=== PATIENT | female | born 1965 | race Two or more races ===

== ENCOUNTER 2016-07-02 09:13 | Emergency (ER) | payer MEDICARE, OTHER ==
[~2016-07-02] VITALS: Ht 157.5 cm; Wt 72.6 kg
--- NOTE | 2016-07-02 09:32 | NUR ---
DR HUMPHRIES AT BEDSIDE FOR EVAL.
[2016-07-02] MEDS ORDERED: OLANZAPINE 5 MG TABLET ONE (09:53)
[2016-07-02 09:56] LABS: BASOPHILS % (AUTO) 0.4 % (0.0-2.0); EOSINOPHILS # (AUTO) 0.2 /CMM (0.0-0.7); EOSINOPHILS % (AUTO) 2.3 % (0.0-6.0); HEMATOCRIT 40 % (33-45); HEMOGLOBIN 13.4 g/dL (11.5-14.8); LYMPHOCYTES # (AUTO) 2.1 /CMM (0.8-4.8); LYMPHOCYTES % (AUTO) 27.8 % (20.0-44.0); MEAN CORPUSCULAR HEMOGLOBIN 31 PG (26.0-33.0); MEAN CORPUSCULAR HGB CONC 34 g/dl (31.0-36.0); MEAN CORPUSCULAR VOLUME 91 fL (82-100); MONOCYTES # (AUTO) 0.5 /CMM (0.1-1.30); MONOCYTES % (AUTO) 6.1 % (2.0-12.0); NEUTROPHILS # (AUTO) 4.9 /CMM (1.8-8.9); NEUTROPHILS % (AUTO) 63.4 % (43.0-81.0); PLATELET COUNT (AUTO) 269 /CMM (150-450); RDW COEFFICIENT OF VARIATION 12.9 (11.5-15.0); RED BLOOD CELL COUNT(AUTO) 4.37 MIL/uL (4.0-5.2); WHITE BLOOD COUNT (AUTO) 7.7 K/uL (4.3-11.0)
[2016-07-02] MEDS ORDERED: OLANZAPINE 10 MG VIAL IM ONE (09:57)
[2016-07-02 10:06] LABS: CREATININE 0.9 mg/dL (0.6-1.3); POTASSIUM 3.9 mmol/L (3.5-5.1)
[2016-07-02 10:53] VITALS: BP 128/92
== END 2016-07-02 10:53 | disposition home or self-care (01) ==
LOC: ER 09:15
DX: E11.9 Type 2 diabetes mellitus without complications (principal); Z79.4 Long term (current) use of insulin; Z96.41 Presence of insulin pump (external) (internal); Z88.2 Allergy status to sulfonamides; Z79.82 Long term (current) use of aspirin
CPT/HCPCS: 36415; 80048; 85025; 99284; A4606; J3490; Z7610

== ENCOUNTER 2016-08-22 21:20 | Emergency (ER) | payer MEDICARE ==
[~2016-08-22] VITALS: Ht 157.5 cm; Wt 72.6 kg
--- NOTE | 2016-08-22 21:45 | NUR ---
51 YO FEMALE BB SELF. PT IS ALERT X 3. PT STATES SHE HAS BEEN HVAING N/V WITH DIARRHEA X 2 DAYS AND STATES SHE FEELS WEAK PT DENIES ABD PAIN. PT AMBULATED TO ER BED WITH STEADY GAIT, SKIN WARM AND DRY, RR EVEN AND UNLABORED. AWAITNG ORDERS FROM PROVIDER, WILLCONTINUE TO MONITOR
[2016-08-22] MEDS ORDERED: ONDANSETRON HCL/PF 4 MG/2 ML VIAL ONE (22:41)
[2016-08-22] MEDS ORDERED: IV NS 0.9% 1,000 ML ONE (22:41)
[2016-08-22] MEDS ORDERED: IV SET PRIMARY 1 EA INFUS.SET MC ONE (22:41)
[2016-08-22] MEDS ORDERED: METOCLOPRAMIDE HCL 10 MG/2 ML VIAL ONE (22:41)
--- NOTE | 2016-08-22 22:57 | NUR ---
20G LEFT HAND IV STARTED, BLOOD SAMPLE OBTAINED AND SENT TO LAB. MEDICATED PT ORDERED
[2016-08-22] MEDS ORDERED: IV NS 0.9% 1,000 ML BAG IV ONE (23:00)
[2016-08-22] MEDS ORDERED: METOCLOPRAMIDE HCL 10 MG/2 ML VIAL IV ONE (23:00)
[2016-08-22] MEDS ORDERED: ONDANSETRON HCL/PF 4 MG/2 ML VIAL IVP ONE (23:00)
[2016-08-22 23:01] LABS: BASOPHILS % (AUTO) 0.4 % (0.0-2.0); EOSINOPHILS % (AUTO) 0.2 % (0.0-6.0); HEMATOCRIT 38 % (33-45); HEMOGLOBIN 12.9 g/dL (11.5-14.8); LYMPHOCYTES # (AUTO) 0.6 /CMM (0.8-4.8); LYMPHOCYTES % (AUTO) 7.1 % (20.0-44.0); MEAN CORPUSCULAR HEMOGLOBIN 31 PG (26.0-33.0); MEAN CORPUSCULAR HGB CONC 34 g/dl (31.0-36.0); MEAN CORPUSCULAR VOLUME 90 fL (82-100); MONOCYTES # (AUTO) 0.3 /CMM (0.1-1.30); MONOCYTES % (AUTO) 4.3 % (2.0-12.0); NEUTROPHILS # (AUTO) 7.1 /CMM (1.8-8.9); PLATELET COUNT (AUTO) 233 /CMM (150-450); RDW COEFFICIENT OF VARIATION 12.9 (11.5-15.0); WHITE BLOOD COUNT (AUTO) 8.1 K/uL (4.3-11.0)
[2016-08-22 23:33] LABS: CALCIUM, SERUM 8.4 mg/dL (8.5-10.1); CREATININE 0.8 mg/dL (0.6-1.3); POTASSIUM 3.8 mmol/L (3.5-5.1)
[2016-08-22 23:37] LABS: ALBUMIN 3.3 g/dL (3.4-5.0); BILIRUBIN,DIRECT 0.2 mg/dL (0.0-0.2); BILIRUBIN,TOTAL 1.5 mg/dL (0.2-1.0); TOTAL PROTEIN, SERUM 6.4 g/dL (6.4-8.2)
--- NOTE | 2016-08-22 23:49 | NUR ---
PT PASSED PO CHALLENGE
[2016-08-23 00:01] LABS: LYMPHOCYTES % (MANUAL) 10 % (16-48); MONOCYTES % (MANUAL) 3 % (0-11.0); NEUTROPHILS % (MANUAL) 87 (42-76)
[2016-08-23 00:02] LABS: PLATELET ESTIMATE ADEQUATE
[2016-08-23 00:03] VITALS: BP 122/80
--- NOTE | 2016-08-23 00:04 | NUR ---
Patient discharged to home in stable condition. Written and verbal after care instructions given. Patient verbalizes understanding of instruction.IV removed. Catheter intact and site benign. Pressure and 4x4 applied to site. No bleeding noted. PT ambulatory with a steady gait VITAL SIGNS WITHIN NORMAL LIMITS.
== END 2016-08-23 00:04 | disposition home or self-care (01) ==
LOC: ER 21:23
DX: R11.2 Nausea with vomiting, unspecified (principal); Z79.4 Long term (current) use of insulin; E10.8 Type 1 diabetes mellitus with unspecified complications; Z88.2 Allergy status to sulfonamides; Z88.6 Allergy status to analgesic agent
CPT/HCPCS: 36415; 80048-TC; 80076-TC; 82962-TC; 83690-TC; 85025-TC; A4606; J2405; J2765; J7030; Z7610

== ENCOUNTER 2016-10-28 17:19 | Emergency (ER) | payer OTHER ==
[~2016-10-28] VITALS: Ht 157.5 cm; Wt 72.6 kg
--- NOTE | 2016-10-28 17:40 | NUR ---
Patient presents to the emergency department complaining of left-sided chest pain radiating down left arm to her left neck with associated mild shortness of breath and lightheadedness. She denies recent trauma, nausea, vomiting. Patient is afebrile. vss
[2016-10-28] MEDS ORDERED: ASPIRIN 325 MG TABLET PO ONE (18:00)
[2016-10-28] MEDS ORDERED: IV NS 0.9% 1,000 ML BAG IV ONE (18:00)
--- NOTE | 2016-10-28 18:00 | NUR ---
ekg in progress
[2016-10-28] MEDS ORDERED: ASPIRIN 325 MG TABLET ONE (18:13)
--- NOTE | 2016-10-28 18:15 | NUR ---
Iv accessed to right wrist 20.
[2016-10-28 18:19] LABS: BASOPHILS # (AUTO) 0.1 /CMM (0.0-0.2); BASOPHILS % (AUTO) 0.8 % (0.0-2.0); EOSINOPHILS # (AUTO) 0.2 /CMM (0.0-0.7); EOSINOPHILS % (AUTO) 2.2 % (0.0-6.0); HEMATOCRIT 41 % (33-45); HEMOGLOBIN 13.6 g/dL (11.5-14.8); LYMPHOCYTES # (AUTO) 2.4 /CMM (0.8-4.8); LYMPHOCYTES % (AUTO) 26.7 % (20.0-44.0); MEAN CORPUSCULAR HEMOGLOBIN 31 PG (26.0-33.0); MEAN CORPUSCULAR HGB CONC 34 g/dl (31.0-36.0); MEAN CORPUSCULAR VOLUME 91 fL (82-100); MONOCYTES # (AUTO) 0.5 /CMM (0.1-1.30); MONOCYTES % (AUTO) 5.8 % (2.0-12.0); NEUTROPHILS # (AUTO) 5.8 /CMM (1.8-8.9); NEUTROPHILS % (AUTO) 64.5 % (43.0-81.0); PLATELET COUNT (AUTO) 250 /CMM (150-450); RDW COEFFICIENT OF VARIATION 12.2 (11.5-15.0); RED BLOOD CELL COUNT(AUTO) 4.46 MIL/uL (4.0-5.2)
--- NOTE | 2016-10-28 18:20 | NUR ---
due meds given as ordered
[2016-10-28 18:27] LABS: CALCIUM, SERUM 9.4 mg/dL (8.5-10.1); CARBON DIOXIDE 29 mmol/L (21-32); CHLORIDE 106 mmol/L (98-107); CREATININE 0.8 mg/dL (0.6-1.3); GLUCOSE 190 mg/dL (74-106); POTASSIUM 4.2 mmol/L (3.5-5.1); SODIUM SERUM 140 mmol/L (136-145); UREA NITROGEN, BLOOD 14 mg/dL (7-18)
[2016-10-28 18:36] LABS: TROPONIN I < 0.017 ng/mL (0.00-0.056)
[2016-10-28 18:45] LABS: D-DIMER 0.34 mg/L(FEU (0.17-0.50); INR 0.96 (0.87-1.13); PROTHROMBIN TIME 10.3 SECS (9.5-12.7)
[2016-10-28 19:14] VITALS: BP 117/73
--- NOTE | 2016-10-28 19:15 | NUR ---
Patient discharged to home in stable condition. Written and verbal after care instructions given. Patient verbalizes understanding of instruction.
== END 2016-10-28 19:15 | disposition home or self-care (01) ==
LOC: ER 17:23
DX: R07.9 Chest pain, unspecified (principal); J45.909 Unspecified asthma, uncomplicated; E10.9 Type 1 diabetes mellitus without complications; Z88.2 Allergy status to sulfonamides; Z88.6 Allergy status to analgesic agent
CPT/HCPCS: 36415; 71010; 80048; 84484; 85025; 85378; 85730; 93005; 96360; 99285; A4606; J7030 ×2; Z7610

== ENCOUNTER 2016-12-22 16:55 | Emergency (ER) | payer OTHER ==
[~2016-12-22] VITALS: Ht 157.5 cm; Wt 77.1 kg
--- NOTE | 2016-12-22 17:00 | NUR ---
BIB SELF PRESENTS TO ED: COUGH, CONGESTION, FLU SYMPTOMS x 2 WEEKS (12/10/16) COMPLETED AZITHROMIACYN PO X1WEEK AGO. NAD NOTED, VSS, RESP EVEN AND UNLABORED. WAITING FOR MD AGARWAL.
[2016-12-22 18:42] VITALS: BP 152/78
--- NOTE | 2016-12-22 18:42 | NUR ---
Patient discharged to home in stable condition. Written and verbal after care instructions given. Patient verbalizes understanding of instruction. Prescription given.
== END 2016-12-22 18:44 | disposition home or self-care (01) ==
LOC: ER 16:58
DX: J40 Bronchitis, not specified as acute or chronic (principal); E11.9 Type 2 diabetes mellitus without complications; I10 Essential (primary) hypertension; J45.909 Unspecified asthma, uncomplicated; Z79.4 Long term (current) use of insulin
CPT/HCPCS: 71020-TC; A4606; Z7610

== ENCOUNTER 2017-12-21 16:45 | Emergency (ER) | payer OTHER ==
[~2017-12-21] VITALS: Ht 157.5 cm; Wt 74.8 kg
--- NOTE | 2017-12-21 17:14 | NUR ---
PATIENT TO ED DT LEFT LOWER EXTREMITY PAIN, SWELLING AND DISCOLORATION SP A GALLON OF MILK FELL ON IT A WEEK AGO. PATIENT IS ABLE TO WALK WITH THE INJURED LEG, PATIENT IS TYPE 1 DIABETES. VSS AT THIS TIME.
--- NOTE | 2017-12-21 17:15 | NUR ---
MD GARZA AT BEDSIDE
[2017-12-21 17:49] VITALS: BP 121/72
[2017-12-21] MEDS ORDERED: HYDROGEL DRESSING 90 GM TUBE TP SCH (18:00)
== END 2017-12-21 17:50 | disposition home or self-care (01) ==
LOC: ER 16:46
DX: S80.11XA Contusion of right lower leg, initial encounter (principal); J45.909 Unspecified asthma, uncomplicated; I10 Essential (primary) hypertension; E10.9 Type 1 diabetes mellitus without complications; Z88.2 Allergy status to sulfonamides; Z88.6 Allergy status to analgesic agent; W22.8XXA Striking against or struck by other objects, initial encounter; Y93.01 Activity, walking, marching and hiking; Y92.89 Other specified places as the place of occurrence of the external cause; Y99.8 Other external cause status
CPT/HCPCS: 99283; A4606; A6248; Z7610

== ENCOUNTER 2018-10-29 17:16 | Emergency (ER) | payer OTHER ==
[~2018-10-29] VITALS: Ht 157.5 cm; Wt 76.2 kg
[2018-10-29] MEDS: ONDANSETRON HCL/PF 4 MG/2 ML VIAL IVP ONE (18:00)
[2018-10-29] MEDS: IV NS 0.9% 1,000 ML BAG IV ONE (18:00)
[2018-10-29] MEDS ORDERED: ONDANSETRON HCL/PF 4 MG/2 ML VIAL ONE (18:05)
[2018-10-29 18:12] LABS: ABG BASE EXCESS -3.1 mmol/L; ABG OXYGEN SATURATION 91.5 % (92.0-98.5); ABG PCO2 21.9 mmHg (35.0-45.0); ABG PH 7.519 (7.350-7.450); COHb 1.9 % (0.5-1.5); MetHb 0.3 % (0.0-1.5); O2Hb 89.5 % (94.0-97.0); SITE, ABG LEFT ARM; VENT MODE, BG ROOM AIR
[2018-10-29] MEDS ORDERED: INSU100V (18:17)
[2018-10-29] MEDS ORDERED: CYAN1TAB8 SL (18:17)
[2018-10-29] MEDS ORDERED: OMEG1CAP PO (18:17)
[2018-10-29] MEDS ORDERED: BLOO-697 IN (18:17)
[2018-10-29] MEDS ORDERED: LISI10TA5 PO (18:17)
[2018-10-29] MEDS ORDERED: FLUT1BLS12 INH (18:17)
[2018-10-29] MEDS ORDERED: CHOL100044 PO (18:17)
--- NOTE | 2018-10-29 18:35 | NUR ---
patient came in the ER due to ELEVATED BS, GLUCOMETER READING IS "HI" SINCE 4PM. On room air, breathing evenly and unlabored. connected to the monitor and pulse ox. kept comfortable, will continue to monitor accordingly.
[2018-10-29 18:39] LABS: ALBUMIN 3.6 g/dL (3.4-5.0); BILIRUBIN,TOTAL 0.7 mg/dL (0.2-1.0); CALCIUM, SERUM 9.3 mg/dL (8.5-10.1); CREATININE 1.1 mg/dL (0.6-1.3); MAGNESIUM 1.8 mg/dL (1.8-2.4); PHOSPHORUS 3.7 mg/dL (2.5-4.9)
[2018-10-29 19:06] LABS: BASOPHILS % (AUTO) 0.4 % (0.0-2.0); EOSINOPHILS % (AUTO) 1.6 % (0.0-6.0); HEMATOCRIT 42 % (33-45); HEMOGLOBIN 13.7 g/dL (11.5-14.8); LYMPHOCYTES # (AUTO) 1.6 /CMM (0.8-4.8); MEAN CORPUSCULAR HGB CONC 33 g/dl (31.0-36.0); MEAN CORPUSCULAR VOLUME 95 fL (82-100); MONOCYTES # (AUTO) 0.5 /CMM (0.1-1.30); MONOCYTES % (AUTO) 7.1 % (2.0-12.0); NEUTROPHILS % (AUTO) 68.9 % (43.0-81.0); PLATELET COUNT (AUTO) 251 /CMM (150-450); RED BLOOD CELL COUNT(AUTO) 4.43 MIL/uL (4.0-5.2); WHITE BLOOD COUNT (AUTO) 7.3 K/uL (4.3-11.0)
[2018-10-29] MEDS: INSULIN REGULAR, HUMAN 100 UNIT/ML 10 ML VIAL SQ ONE (20:17)
--- NOTE | 2018-10-29 21:18 | NUR ---
Patient discharged to home in stable condition. Written and verbal after care instructions given. Patient verbalizes understanding of instruction. IV removed. Catheter intact and site benign. Pressure and 4x4 applied to site. No bleeding noted.
[2018-10-29 21:23] VITALS: BP 133/76
== END 2018-10-29 22:31 | disposition home or self-care (01) ==
LOC: ER 17:19
DX: E10.65 Type 1 diabetes mellitus with hyperglycemia (principal); E87.1 Hypo-osmolality and hyponatremia; R79.89 Other specified abnormal findings of blood chemistry; I10 Essential (primary) hypertension; J45.909 Unspecified asthma, uncomplicated; Z88.2 Allergy status to sulfonamides; Z88.6 Allergy status to analgesic agent; Z79.899 Other long term (current) drug therapy; Z79.4 Long term (current) use of insulin
CPT/HCPCS: 36415; 36600; 80053; 82010; 82962 ×4; 83735; 84100; 85025; 96374; 99284; J2405; J7030

== ENCOUNTER 2024-02-28 04:21 | Emergency (ER) | payer BC, OTHER ==
[~2024-02-28] VITALS: Ht 162.6 cm; Wt 72.1 kg
[~2024-02-28 04:21] MED LIST: BLOO-697 IN; CHOL100044 PO; CYAN1TAB8 SL; FLUT1BLS12 INH; INSU100V; LISI10TA29 PO; OMEG1CAP PO
[2024-02-28] MEDS ORDERED: HYDROCODONE/APAP 10/325MG TABLET ONE (05:26)
[2024-02-28] MEDS: HYDROCODONE/APAP 10/325MG TABLET PO ONE (05:31)
[2024-02-28 05:46] LABS: BASOPHILS # (AUTO) 0.1 K/uL (0.0-0.2); BASOPHILS % (AUTO) 0.6 % (0.0-2.0); EOSINOPHILS # (AUTO) 0.2 K/uL (0.0-0.7); EOSINOPHILS % (AUTO) 2.6 % (0.0-6.0); HEMATOCRIT 38 % (33-45); HEMOGLOBIN 12.8 g/dL (11.5-14.8); LYMPHOCYTES % (AUTO) 31.5 % (20.0-44.0); MEAN CORPUSCULAR HEMOGLOBIN 31 PG (26.0-33.0); MEAN CORPUSCULAR HGB CONC 33 g/dl (31.0-36.0); MEAN CORPUSCULAR VOLUME 93 fL (82-100); MONOCYTES # (AUTO) 0.7 K/uL (0.1-1.30); MONOCYTES % (AUTO) 7.2 % (2.0-12.0); NEUTROPHILS # (AUTO) 5.4 K/uL (1.8-8.9); NEUTROPHILS % (AUTO) 58.1 % (43.0-81.0); PLATELET COUNT (AUTO) 275 K/uL (150-450); RED BLOOD CELL COUNT(AUTO) 4.12 MIL/uL (4.0-5.2); RED CELL DISTRIBUTION WIDTH 13.7 % (11.5-15.0); WHITE BLOOD COUNT (AUTO) 9.4 K/uL (4.3-11.0)
[2024-02-28 05:53] LABS: CALCIUM, SERUM 9.2 mg/dL (8.5-10.1); CREATININE 0.7 mg/dL (0.6-1.3); POTASSIUM 3.6 mmol/L (3.5-5.1)
[2024-02-28 05:59] LABS: ALBUMIN 3.3 g/dL (3.4-5.0); BILIRUBIN,TOTAL 0.4 mg/dL (0.2-1.0)
[2024-02-28] MEDS ORDERED: GABA-532 PO (06:20)
[2024-02-28 06:54] VITALS: BP 111/67; TEMP 98.3; O2SAT 99
== END 2024-02-28 06:55 | disposition home or self-care (01) ==
LOC: ER 04:27
DX: M79.661 Pain in right lower leg (principal); I10 Essential (primary) hypertension; E10.9 Type 1 diabetes mellitus without complications; J45.909 Unspecified asthma, uncomplicated; Z79.51 Long term (current) use of inhaled steroids; Z79.4 Long term (current) use of insulin; Z79.899 Other long term (current) drug therapy; Z88.2 Allergy status to sulfonamides; Z88.6 Allergy status to analgesic agent
CPT/HCPCS: 36415; 80053-TC; 85025-TC; 93971-TC